=== PATIENT | male | born 1955 | race Caucasian/White ===

== ENCOUNTER 2017-11-24 09:48 | Inpatient (IN) | payer OTHER ==
[~2017-11-24] VITALS: Ht 182.9 cm; Wt 88.5 kg
[2017-11-24] MEDS ORDERED: LOTREL 5-10 MG1 CAP PO (10:01)
[2017-12-02] MEDS ORDERED: INTESTINEX680 M1 PO (09:37)
[2017-12-02] MEDS ORDERED: OXYC1TAB9 PO (09:37)
== END 2017-12-02 10:39 | disposition home or self-care (01) | DRG 331 ==
LOC: O/R 11-29 06:15 → SURH 11-29 06:15
PROVIDERS: Surgery
PROC: 0DTP4ZZ Resection of Rectum, Percutaneous Endoscopic Approach (ICD-10-PCS; 2017-11-29)
PROC: 0DJD8ZZ Inspection of Lower Intestinal Tract, Via Natural or Artificial Opening Endoscopic (ICD-10-PCS; 2017-11-29)
PROC: 0DTE4ZZ Resection of Large Intestine, Percutaneous Endoscopic Approach (ICD-10-PCS; principal; 2017-11-29 18:30)
DX: K57.32 Diverticulitis of large intestine without perforation or abscess without bleeding (principal); I11.9 Hypertensive heart disease without heart failure